=== PATIENT | female | born 1960 | race Caucasian/White ===

== ENCOUNTER 2017-08-02 12:36 | Outpatient (CLI) | payer OTHER | END 2017-08-02 12:37 | disposition home or self-care (01) | LOC: LABBT 12:36 | PROVIDERS: ATTEND Surgery | DX: Z01.818 Encounter for other preprocedural examination (principal); E66.01 Morbid (severe) obesity due to excess calories ==

== ENCOUNTER 2017-08-02 13:52 | Outpatient (CLI) | payer OTHER | END 2017-08-02 13:53 | disposition home or self-care (01) | LOC: DTY/OP 13:52 | PROVIDERS: ATTEND Surgery | DX: E66.01 Morbid (severe) obesity due to excess calories (principal) | CPT/HCPCS: 97802 ==

== ENCOUNTER 2017-08-02 16:00 | Inpatient (IN) | payer OTHER ==
[2017-08-02 13:11] VITALS: BMI 41.8
[2017-08-10] MEDS ORDERED: CEFAZOLIN/Water 2 GM/20 ML SYRINGE ONE (10:12)
[2017-08-10] MEDS ORDERED: Heparin 5,000 UNITS/ML VIAL ONE (10:13)
[2017-08-10 10:40] LABS: ALT (SGPT) 18 U/L (8-55); AST (SGOT) 17 U/L (5-34); Alkaline Phosphatase 65 U/L (40-150); Bilirubin, Direct 0.1 mg/dL (0.1-0.3); Bilirubin, Total 0.3 mg/dL (0.2-1.2); Protein, Total 7.2 g/dL (6.0-8.3)
[2017-08-10] MEDS ORDERED: Fentanyl 250 MCG/5 ML VIAL ONE (10:44)
[2017-08-10] MEDS ORDERED: Propofol 500 MG/50 ML VIAL ONE (10:45)
[2017-08-10 10:52] LABS: Hemoglobin A1c 5.7 % (4.0-6.0)
[2017-08-10] MEDS ORDERED: Midazolam HCl 2 mg/2 ml Vial ONE (11:55)
[2017-08-10] MEDS ORDERED: Lidocaine 4% Topical Sol 50 ML BOT ONE (12:01)
[2017-08-10] MEDS ORDERED: Ondansetron HCl/PF 4 MG/2 ML Vial ONE (12:10)
[2017-08-10] MEDS ORDERED: Glycopyrrolate 0.2 MG/ML 5 ML SYRINGE ONE (12:10)
[2017-08-10] MEDS ORDERED: Ketorolac Tromethamine 30 MG/ML VIAL ONE (12:10)
[2017-08-10] MEDS ORDERED: Lidocaine 2% PF 10 ML AMP (For Epidural Use) ONE (12:10)
[2017-08-10] MEDS ORDERED: Propofol 200 MG/20 ML VIAL ONE (12:10)
[2017-08-10] MEDS ORDERED: Dexamethasone 20 MG/5 ML VIAL ONE (12:10)
[2017-08-10] MEDS ORDERED: ePHEDrine/0.9% NaCl/PF SYRINGE 50 mg/10 ml ONE (12:10)
[2017-08-10] MEDS ORDERED: Bupivacaine PF 0.5% 30 ML VIAL ONE (12:33)
[2017-08-10] MEDS ORDERED: Hydrocodone-Acetamin 15 ML UDCUP PO PRN (13:23)
[2017-08-10] MEDS ORDERED: Dextrose 5% in Water 1,000 ML IV PRN (13:23)
[2017-08-10] MEDS ORDERED: diphenhydrAMINE 50 MG/ML VIAL IVP PRN ×2 (13:23→13:42)
[2017-08-10] MEDS ORDERED: Ondansetron HCl/PF 4 MG/2 ML Vial IVP PRN ×3 (13:23→13:42)
[2017-08-10] MEDS ORDERED: Dextrose 50% Abboject 50 ML SYRINGE SLOW IVP PRN (13:23)
[2017-08-10] MEDS ORDERED: hydrALAZINE 20 MG/ML VIAL SLOW IVP PRN (13:23)
[2017-08-10] MEDS ORDERED: Promethazine HCl 25 MG/ML VIAL IM PRN ×2 (13:23→13:42)
[2017-08-10] MEDS ORDERED: Promethazine HCl 25 MG/ML VIAL SLOW IVP PRN (13:42)
[2017-08-10] MEDS ORDERED: Naloxone HCl 0.4 mg/ml Vial IV PRN (13:42)
[2017-08-10] MEDS ORDERED: diphenhydrAMINE 50 MG/ML VIAL IM PRN (13:42)
[2017-08-10] MEDS ORDERED: diphenhydrAMINE 25 MG CAP PO PRN (13:42)
[2017-08-10] MEDS ORDERED: HYDROmorphone 2 MG/ML VIAL SLOW IVP PRN (13:42)
[2017-08-10] MEDS ORDERED: Fentanyl 5000 MCG/250 ML CADD IVPB PRN (13:42)
--- NOTE | 2017-08-10 13:42 | OP ---
PREOPERATIVE DIAGNOSIS: Morbid obesity. SURGEON: Jhon Hale M.D. PROCEDURE PERFORMED: Laparoscopic sleeve gastrectomy, esophagogastroscopy. INDICATIONS: A 57-year-old female, morbidly obese, who has attempted multiple weight loss programs without success. FINDINGS: A 38-Norwegian bougie used. PROCEDURE IN DETAIL: After informed consent was obtained, the patient was taken to the operating ro om and given general endotracheal anesthesia. She was placed in the supine position. The abdomen w as prepped and draped in the usual fashion. Local anesthesia infiltrated subcutaneously and deep. A 12 mm incision was performed approximately 8 inches below the xiphoid slightly to the left. Veres s needle inserted. Drop test performed. Pneumoperitoneum was created to a volume of 2 liters of ca rbon dioxide. Utilizing a bladeless 12 mm trocar and 0 degree laparoscope direct visual entry in th e abdominal cavity was performed. Pneumoperitoneum was then created to a pressure of 15 mmHg and th e patient placed in steep reverse Trendelenburg position. A Natdiegoen liver retractor inserted. Le ft lobe of liver retracted superiorly. The pylorus was identified and a 12 mm port was placed on th e right side and two 12s placed left subcostal. The omentum was taken off the greater curvature of 5 cm from the pylorus utilizing the LigaSure. The short gastrics divided with the LigaSure and left crura defined with the LigaSure. A 38-Norwegian bougie inserted and directed into the antrum. The li near 60 mm green load stapler used to divide the antrum to the bougie, a gold load used along the alfonzo ugie, and a series of blues through the angle of His. Intraoperative endoscopy was then performed. The video endoscope inserted under direct vision and advanced into the sleeve. The staple line ins pected. There was no bleeding. The staple line then tested by inflating the stomach with pressuriz ed air under water. There was no air leak. Stomach decompressed. Scope removed. The remnant stom ach removed from the abdomen through the left lateral port site. The fascia closed with 0 Vicryl arriaga ture and the GraNee needle. Trocars and retractors removed. The skin closed with interrupted 4-0 R apide. Dermabond applied. The patient tolerated the procedure well and transferred to recovery in good condition. Sponge and needle count verified correct x2.
[2017-08-10] MEDS ORDERED: Communication Order-Pharmacy FS SCH (13:45)
[2017-08-10] MEDS ORDERED: Fentanyl 100 MCG/2 ML VIAL ONE (14:11)
[2017-08-10] MEDS ORDERED: CEFAZOLIN/Water 2 GM/20 ML SYRINGE SLOW IVP SCH (18:00)
[2017-08-10] MEDS: Ketorolac Tromethamine 30 MG/ML VIAL IVP SCH ×2 (20:04→23:57)
[2017-08-10] MEDS: D5 1/2 NS w/20 mEq KCL 1,000 ML IV SCH (20:13)
[2017-08-11] MEDS ORDERED: CEFAZOLIN/Water 2 GM/20 ML SYRINGE SLOW IVP SCH (04:00)
[2017-08-11] MEDS: Ketorolac Tromethamine 30 MG/ML VIAL IVP SCH ×2 (05:34→11:59)
[2017-08-11] MEDS: D5 1/2 NS w/20 mEq KCL 1,000 ML IV SCH ×2 (05:35)
[2017-08-11 06:35] LABS: #Lymphocytes 1.3 thou/uL (1.20-3.40); #Monocytes 0.7 thou/uL (0.11-0.59); #Neutrophils 11.7 thou/uL (1.40-6.50); %Basophils 0.2 % (0.0-1.0); %Eosinophils 0.1 % (0.0-10.0); %Lymphocytes 9.5 % (21.0-51.0); %Monocytes 5.2 % (0.0-10.0); Hematocrit 38.2 % (36.0-47.0); Mean Platelet Volume 7.1 fL (7.4-10.4); Red Blood Cell (RBC) Count 4.25 mill/uL (4.20-5.40); White Blood Cell (WBC) Count 13.8 thou/uL (4.8-10.8)
[2017-08-11 07:01] LABS: Anion Gap 12 mmol/L (10-20); BUN (Urea Nitrogen) 12 mg/dL (9.8-20.1); Calc. Creatinine Clearance 138 mL/min (70-130); Calcium 9.2 mg/dL (7.8-10.44); Carbon Dioxide 24 mmol/L (22-29); Chloride 105 mmol/L (98-107); Estimated GFR-MDRD 82
[2017-08-11] MEDS ORDERED: Pantoprazole 40 MG VIAL IVP SCH (09:00)
[2017-08-11] MEDS ORDERED: Enoxaparin Sodium 40 MG/0.4 ML SYRINGE SC SCH (09:00)
--- NOTE | 2017-08-11 09:51 | RAD ---
LIMITED UPPER GI WITH 15 ML OF GASTROGRAFIN: HISTORY: Recent bariatric surgery. Vertical sleeve gastrectomy. FINDINGS: There is prompt passage of contrast from the esophagus into the stomach. No contrast extravasation is seen. IMPRESSION: No evidence of perforation or obstruction. POS: ANTONIA
[2017-08-11 12:02] VITALS: BP 124/67; TEMP 97.9
--- NOTE | 2017-08-11 19:36 | DIS ---
DISCHARGE DIAGNOSIS: Morbid obesity. PROCEDURES DURING ADMISSION: Laparoscopic sleeve gastrectomy, intraoperative esophagogastroscopy, p ostoperative Gastrografin swallow. HOSPITAL COURSE: The patient was admitted, taken to the operating room where she underwent sleeve g astrectomy. Postoperatively, she has done well. Gastrografin swallow was fine. She is tolerating liquids. She is discharged home in good condition on hydrocodone and Zofran. She will follow up wi [facility] in 2 weeks.
== END 2017-08-11 13:30 | disposition home or self-care (01) | DRG 621 ==
LOC: SURG A 08-10 09:35 → EDSTATUS 08-10 16:00
PROVIDERS: ADMIT Surgery; ATTEND Surgery
PROC: 0DB64Z3 Excision of Stomach, Percutaneous Endoscopic Approach, Vertical (ICD-10-PCS; principal; 2017-08-10)
PROC: 0DJ08ZZ Inspection of Upper Intestinal Tract, Via Natural or Artificial Opening Endoscopic (ICD-10-PCS; 2017-08-10)
DX: E66.01 Morbid (severe) obesity due to excess calories (principal); I10 Essential (primary) hypertension; Z68.41 Body mass index [BMI] 40.0-44.9, adult; E78.5 Hyperlipidemia, unspecified; K21.9 Gastro-esophageal reflux disease without esophagitis
CPT/HCPCS: 36415; 74241; 80048; 80076; 83036; 85025; 88307; 88312; 94760; C9113; J0131; J1100; J1644; J1650; J1885; J2001; J2250; J2270; J2405; J2704; J3010; S0020